=== PATIENT | female | born 1930 | race Caucasian/White ===

== ENCOUNTER → 2018-01-23 | Outpatient (CLI) | payer MEDICARE ==
--- NOTE | 2018-01-23 16:56 | RAD ---
PA view chest x-ray and two-view left rib detail series History: Left rib pain. Findings: No acute left rib fracture is evident. Chest x-ray demonstrates no acute lung infiltrate or pleural effusion or pulmonary edema or pneumothorax. IMPRESSION: No acute left rib fracture is evident.
== END | disposition home or self-care (01) ==
LOC: DXRAD 14:36
PROVIDERS: ATTEND Family Medicine
DX: R07.81 Pleurodynia (principal)
CPT/HCPCS: 71101

== ENCOUNTER → 2019-05-13 | Outpatient (CLI) | payer MEDICARE ==
--- NOTE | 2019-05-13 15:30 | RAD ---
Exam : Carotid Duplex with Grayscale Ultrasound and Spectral and Color Doppler Analysis 05/13/2019 3:23 PM Clinical Indications: Bilateral carotid bruit Comparison study: Carotid Doppler July 28, 2018. RS Compliance Statement - Stenosis calculations for CT, MR and conventional angiography are based upon measurement of the distal ICA diameter in accordance with the NASCET methodology. Stenosis calculations for carotid ultrasound studies are derived from validated velocity criteria which are known to correlate with the NASCET methodology. Findings: The common, internal and external carotid arteries were examined by grayscale, color and spectral Doppler ultrasound. Atherosclerotic calcification is seen throughout the bilateral common and internal carotid arteries was most prominent in the carotid bulbs bilaterally. Significant visual narrowing appears to be present in the left carotid bulb extending into the proximal most internal carotid artery. There is a focal elevation in velocity to 164 cm/s in the proximal most left internal carotid artery. Similar but more mild findings are seen on the right. Velocity elevation 187 cm/s are seen within the proximal right internal carotid artery. The following are the velocities and ratios in the carotid arteries on both sides: RIGHT ICA PV: 187cm/sec RIGHT CCA PV: 93cm/sec RIGHT ICA ED: 31cm/sec RIGHT IC/CCPV: 2.0 RIGHT VERTEBRAL: antegrade flow LEFT ICA PV: 163cm/sec LEFT CCA PV: 97cm/sec LEFT ICA ED: 31cm/sec LEFT IC/CCPV: Less than 2 LEFT VERTEBRAL: antegrade flow <50% ICA Stenosis: PSV < 125cm/s (EDV < 40cm/s; SVR < 2.0) 50-69% ICA Stenosis: PSV < 125-229cm/s (EDV 40-99cm/s; SVR 2.0-3.9) >70% ICA Stenosis: PSV > 230cm/s (EDV >100cm/s; SVR >4.0) Impression: Dense calcification, visual narrowing, and elevated velocities within the proximal internal carotid arteries bilaterally suggesting 50-69 %stenosis. Findings are similar to comparison study. CT angiography could be performed for more detailed characterization as clinically indicated. Electronically signed by: Gideon Heredia MD (05/13/2019 3:27 PM) [id number]
== END | disposition home or self-care (01) ==
LOC: US 10:44
PROVIDERS: ATTEND Family Medicine
DX: I65.23 Occlusion and stenosis of bilateral carotid arteries (principal)
CPT/HCPCS: 93880

== ENCOUNTER → 2020-07-14 | Outpatient (CLI) | payer MEDICARE ==
--- NOTE | 2020-07-14 15:11 | RAD ---
Exam : Carotid Duplex with Grayscale Ultrasound and Spectral and Color Doppler Analysis 07/14/2020 3:00 PM Clinical Indications: Reason: BRUIT, HTN, 72 year history of smoking, diabetes Comparison study: Carotid Doppler ultrasound May 13, 2019 [facility] Compliance Statement - Stenosis calculations for CT, MR and conventional angiography are based upon measurement of the distal ICA diameter in accordance with the NASCET methodology. Stenosis calculations for carotid ultrasound studies are derived from validated velocity criteria which are known to correlate with the NASCET methodology. Findings: The common, internal and external carotid arteries were examined by grayscale, color and spectral Doppler ultrasound. There is dense calcified plaque in the bilateral carotid bulbs left greater than right. On the right there is approximately 50% narrowing on color Doppler imaging of the ostium of the internal carotid artery. On the left of the ostium of the internal carotid artery is poorly visualized secondary to shadowing from dense plaque. Elevated velocities are noted, see below for detail. The following are the velocities and ratios in the carotid arteries on both sides: RIGHT ICA PV: 201cm/sec RIGHT CCA PV: 92cm/sec RIGHT ICA ED: 19cm/sec RIGHT IC/CCPV: Greater than 2, but less than 4 RIGHT VERTEBRAL: antegrade flow LEFT ICA PV: 152 cm/sec LEFT CCA PV: 98cm/sec LEFT ICA ED: 29cm/sec LEFT IC/CCPV: Less than 2 LEFT VERTEBRAL: Biphasic flow <50% ICA Stenosis: PSV < 125cm/s (EDV < 40cm/s; SVR < 2.0) 50-69% ICA Stenosis: PSV < 125-229cm/s (EDV 40-99cm/s; SVR 2.0-3.9) >70% ICA Stenosis: PSV > 230cm/s (EDV >100cm/s; SVR >4.0) Impression: 1.Ultrasound findings consistent with 50-70% stenosis of the internal carotid arteries bilaterally. Findings are similar to comparison study. 2. To and fro flow seen within the left vertebral artery. This could be the result of hemodynamically significant left subclavian stenosis 3. Consider CT angiography for further evaluation Electronically signed by: Gideon Heredia MD (07/14/2020 3:08 PM) [id number]
[2020-07-14 15:18] LABS: BASO # 0.1 x10^3/uL (0.0-0.2); BASO % 2 % (0-3); EOS # 0.2 x10^3/uL (0.0-0.7); EOS % 3 % (0-3); HEMATOCRIT 40.4 % (36.0-47.0); HEMOGLOBIN 13.5 g/dL (12.0-15.5); LYMPH # 1.8 x10^3/uL (1.0-4.8); LYMPH % 23 % (24-48); MEAN CORPUSCULAR HEMOGLOBIN 31 pg (25-35); MEAN CORPUSCULAR HGB CONC 33 g/dL (31-37); MEAN CORPUSCULAR VOLUME 93 fL (79-100); MONO # 0.6 x10^3/uL (0.0-1.1); MONO % 8 % (0-9); NEUT # 4.8 x10^3uL (1.8-7.7); NEUT % 64 % (31-73); PLATELET COUNT 346 x10^3/uL (140-400); RED BLOOD COUNT 4.33 x10^6/uL (3.50-5.40); RED CELL DISTRIBUTION WIDTH 15.9 % (11.5-14.5); WHITE BLOOD COUNT 7.6 x10^3/uL (4.0-11.0)
[2020-07-14 15:20] LABS: BILIRUBIN,URINE NEG (NEG); CLARITY,URINE CLEAR; COLOR,URINE YELLOW; GLUCOSE,URINE 100 mg/dL (NEG); NITRITE,URINE NEG (NEG); RBC,URINE OCC /HPF (0-2); UROBILINOGEN,URINE 0.2 mg/dL (0.2 mg/dL)
[2020-07-14 15:21] LABS: BACTERIA,URINE MOD /HPF (0-FEW); HYALINE CASTS, URINE OCC /HPF; SQUAMOUS EPITHELIAL CELL,UR MANY /LPF
[2020-07-14 15:26] LABS: ALBUMIN 3.9 g/dL (3.4-5.0); ALBUMIN/GLOBULIN RATIO 1.1 (1.0-1.7); CALCIUM 9.6 mg/dL (8.5-10.1); CREATININE 1.2 mg/dL (0.6-1.0); GFR 42.5; POTASSIUM 3.7 mmol/L (3.5-5.1); TOTAL BILIRUBIN 0.3 mg/dL (0.2-1.0); TOTAL PROTEIN 7.6 g/dL (6.4-8.2)
--- NOTE | 2020-07-14 15:44 | RAD ---
Bilateral lower extremity arterial duplex ultrasound 07/14/2020 INDICATION: Bilateral lower extremity pain COMPARISON STUDY: None Discussion: Ultrasound evaluation of the major arteries of the bilateral lower extremities was performed including color Doppler imaging spectral analysis. FINDINGS: Severe calcified plaque is seen throughout the major arteries of the bilateral lower extremities. Right common femoral artery and profunda arteries appear grossly patent. Mild elevation of velocities in the proximal right SFA is seen with significant corresponding visual narrowing on color Doppler imaging. Finding could reflect mild stenosis. Popliteal artery appears grossly patent. Posterior tibial and anterior tibial artery appear grossly patent. Dorsalis pedis artery appears grossly patent. Left common femoral artery is densely calcified and mildly narrowed but appears to be otherwise patent. Left profunda artery appears grossly patent. There is occlusion of the left superficial femoral artery. There is reconstitution of the distal left SFA. The popliteal artery appears mildly narrowed but patent. Left posterior tibial artery is nonvisualized distally and may be occluded. The anterior tibial artery and dorsalis pedis artery appear grossly patent. IMPRESSION: 1. Severe diffuse atherosclerotic vascular disease 2. 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 Probable occlusion of the left posterior tibial artery distally 4. Probable mild stenosis in the proximal right superficial femoral artery Electronically signed by: Gideon Heredia MD (07/14/2020 3:41 PM) [id number]
[2020-07-15 00:07] LABS: IMMUNOGLOBULIN A 89 mg/dL (64-422); IMMUNOGLOBULIN G 910 mg/dL (586-1602); IMMUNOGLOBULIN M 224 mg/dL (26-217)
[2020-07-15 01:07] LABS: HEMOGLOBIN A1C 7.7 % (4.8-5.6)
[2020-07-15 22:47] LABS: FREE T4 1.14 ng/dL (0.76-1.46); THYROID STIM HORMONE (TSH) 0.597 uIU/mL (0.358-3.740)
== END | disposition home or self-care (01) ==
LOC: US 12:45
PROVIDERS: ATTEND Family Medicine
DX: I65.23 Occlusion and stenosis of bilateral carotid arteries (principal); I99.8 Other disorder of circulatory system; I70.202 Unspecified atherosclerosis of native arteries of extremities, left leg; R09.89 Other specified symptoms and signs involving the circulatory and respiratory systems
CPT/HCPCS: 36415; 80053; 81001; 82607; 82746; 82784; 83036; 84165; 84439; 84443; 85025; 87086; 93880; 93925